=== PATIENT | female | born 1975 | race Caucasian/White ===

== ENCOUNTER 2017-08-28 18:22 | Emergency (ER) | payer OTHER ==
[2017-08-28 20:24] VITALS: BP 143/76
[2017-08-28] MEDS ORDERED: Albuterol/Ipratropium NEB.SOL* Albuterol 2.5 MG/Ipratropium 0.5 MG 3 ML INH ONE (20:50)
[2017-08-28] MEDS ORDERED: Azithromycin TAB* 250 MG PO ONE (20:50)
--- NOTE | 2017-08-28 20:51 | UC ---
Throat Pain/Nasal [place] HPI - HPI Summary HPI Summary: Pt presents with 6 days coarse cough with wheeze, progressive ear pain L>rR x 3 days and nasal congestion. Tactile temp. + PND and sore throat. Pt with sick contact with similar. no rash. + po decreased appetitis Pt medication reviewed this visit - History of Current Complaint Chief Complaint: UCGeneralIllness Stated Complaint: FLU SX'S Time Seen by Provider: 08/28/17 20:39 Hx Obtained From: Patient, Family/Rn Postpartum Hx Last Menstrual Period: 2 WKS AGO ?: No Onset/Duration: Gradual Onset Severity: Moderate Pain Intensity: 7 Cough: Productive - yellow Associated Signs & Symptoms: Positive: Wheezing, Fever, Vomiting - yesterday x 1 - Epiglottits Risk Factors Epiglottis Risk Factors: Negative - Allergies/Home Medications Allergies/Adverse Reactions: Allergies Allergy/AdvReac Type Severity Reaction Status Date / Time nitrofurantoin Allergy Rash Verified 08/28/17 20:25 [From Macrodantin] Penicillins Allergy Rash Verified 08/28/17 20:25 Home Medications: Home Medications GuaiFENesin DM* [Robitussin DM*] 10 ml PO Q6H PRN 08/28/17 [History Confirmed ] Ibuprofen TAB* [Advil TAB*] 800 mg PO Q6H PRN 08/28/17 [History Confirmed ] PMH/Surg Hx/FS Hx/Imm Hx Previously Healthy: Yes - Surgical History Surgical History: Yes Surgery Procedure, Year, and Place: tubal 1999 - Family History Known Family History: Positive: Hypertension - Social History Occupation: Employed Full-time Lives: With Family Alcohol Use: None Substance Use Type: None Substance Use Comment - Amount & Last Used: HX OF MARIJUANA USE Smoking Status (MU): Former Smoker Type: Cigarettes Amount Used/How Often: 1/2 ppd Length of Time of Smoking/Using Tobacco: 20 yrs Have You Smoked in the Last Year: Yes When Did the Patient Quit Smoking/Using Tobacco: 2016 Review of Systems Constitutional: Fever - tactile, Fatigue Skin: Negative Eyes: Negative ENT: Ear Ache, Nasal Discharge, Sinus Congestion Respiratory: Cough Cardiovascular: Negative Gastrointestinal: Negative Genitourinary: Negative Motor: Negative Neurovascular: Negative Musculoskeletal: Negative Neurological: Negative Psychological: Negative All Other Systems Reviewed And Are Negative: Yes Physical Exam Triage Information Reviewed: Yes Appearance: Well-Nourished, Other: - coarse cough, congested Vital Signs: Initial Vital Signs Temp 98.1 F 08/28/17 20:16 Pulse 65 08/28/17 20:16 Resp 18 08/28/17 20:16 BP 143/76 08/28/17 20:16 Pulse Ox 99 08/28/17 20:16 Vital Signs Reviewed: Yes Eye Exam: Normal ENT: Positive: Normal ENT inspection, Hearing grossly normal, Nasal congestion, Sinus tenderness, Uvula midline, Other - fluid b/l TM Left>right ++ erythema turbinates inflammed + PND uvula midline, no exudate Dental Exam: Normal Neck exam: Normal Neck: Positive: Supple, Nontender, No Lymphadenopathy Respiratory Exam: Normal Respiratory: Positive: Chest non-tender, No respiratory distress, Wheezing - scattered Cardiovascular Exam: Normal Cardiovascular: Positive: RRR, No Murmur Abdominal Exam: Normal Abdomen Description: Positive: Nontender, No Organomegaly Bowel Sounds: Positive: Present Musculoskeletal Exam: Normal Neurological Exam: Normal Neurological: Positive: Alert Psychological Exam: Normal Re-Evaluation - Re-Evaluation First Eval Change: Improved - Pt coughing improved, wheeze resolved follwoing neb will Rx albuterol hfa secretion precaution hydrate Throat Pain/Nasal Course/Dx - Course Course Of Treatment: Pt with 1 week coarse cough, wheeze, ear pain and sinus congestion. Pt with diffuse wheeze on exam, left OM. neb. abx. recheck - Differential Dx/Diagnosis Provider Diagnoses: acute bronchitis, left OM Discharge - Discharge Plan Condition: Stable Disposition: HOME Prescriptions: Azithromycin 500 mg PO DAILY #6 tablet Fluticasone NASAL SPRAY 50MCG* [Flonase NASAL SPRAY 50MCG*] 2 spray BOTH NARES DAILY #1 btl Patient Education Materials: Ear Infection (ED), Acute Bronchitis (ED) Referrals: NEETU Peña [Primary Care Provider] - Additional Instructions: Take antibiotics as prescribed until gone use your inhaler, 2 puffs every 4 hours tomorrow, then every 4 hours as needed use nasal spray daily as instructed - get plenty of restful sleep -- These infections are spread by secretions - do NOT share eating or drinking utensils - clean items you share with other people such as cell phones, computer mouse, TV remote, computer tablets, etc. After you have taken antibiotics for 3 days, change your toothbrush and your pillowcase. - humidify the air in the room where you sleep - boil water, run a hot steam shower, vaporizer, cups of water by heat register - okay to take over the counter decongestant and cough medication - contact your doctor, return here, or go to the emergency department with questions or concerns
[2017-08-28] MEDS ORDERED: Albuterol HFA INHALER* 8 gm MDI INH ONE (21:17)
== END 2017-08-28 21:39 | disposition home or self-care (01) ==
LOC: UCCORT 18:22
DX: J20.9 Acute bronchitis, unspecified (principal); H66.92 Otitis media, unspecified, left ear; Z88.1 Allergy status to other antibiotic agents; Z88.0 Allergy status to penicillin; Z87.891 Personal history of nicotine dependence
CPT/HCPCS: 87502; 99213; A9270-GY; G0463